=== PATIENT | male | born 1960 | race Caucasian/White ===

== ENCOUNTER 2024-12-16 01:13 | Emergency (ER) | payer OTHER ==
[~2024-12-16] VITALS: Ht 182.9 cm; Wt 109.0 kg
[2024-12-16 01:17] VITALS: O2SAT 98
[2024-12-16 01:43] VITALS: BP 50/27; PULSE 66; O2SAT 95
[2024-12-16 01:45] VITALS: RESP 24
[2024-12-16 01:53] LABS: BASOPHILS % 1.1 % (0.0-2.0); EOSINOPHILS % 0.8 % (0.0-5.0); HEMATOCRIT. 47.7 % (42.0-52.0); HEMOGLOBIN. 15.7 g/dL (14.0-18.0); LYMPHOCYTES % 57.3 % (20.0-50.0); MEAN CORPUSCULAR HEMOGLOBIN 31.2 pg (28.0-32.0); MEAN CORPUSCULAR VOLUME 94.6 fL (80.0-94.0); MEAN PLATELET VOLUME 8.5 fl (7.4-10.4); MONOCYTES % 3.9 % (2.0-8.0); NEUTROPHILS % 36.9 % (40.0-76.0); PLATELET 239 x1000/uL (130-400); RED BLOOD CELL COUNT 5.04 mill/uL (4.7-6.1); RED CELL DISTRIBUTION WIDTH 12.9 % (11.6-14.6); WHITE BLOOD COUNT 7.1 x1000/uL (4.5-11.0)
[2024-12-16 02:00] LABS: PARTIAL THROMBOPLASTIN TIME 22.5 sec (23.4-31.0); PROTHROMBIN TIME 10.6 sec (9.6-11.0)
[2024-12-16 02:01] LABS: CARBON DIOXIDE 21 mEq/L (21-32); CHLORIDE 103 mEq/L (98-107); POTASSIUM 3.2 mEq/L (3.5-5.1); SODIUM 139 mEq/L (136-145)
[2024-12-16 02:02] LABS: CALCIUM 9.2 mg/dL (8.7-10.4)
[2024-12-16 02:07] LABS: CREATININE 1.3 mg/dL (0.6-1.3); ETHANOL BLOOD < 10 mg/dL (<10); GLUCOSE 283 mg/dL (70-105); UREA NITROGEN BLOOD 15 mg/dL (9-23)
[2024-12-16 02:09] LABS: PHOSPHORUS 4.1 mg/dL (2.5-4.9)
[2024-12-16] MEDS ORDERED: KCL 20MEQ/100ML PREMIX 100 ML IV SCH (02:30)
[2024-12-16] MEDS ORDERED: ACETAMINOPHEN 1000MG/100ML 100 ML IV NR (02:30)
[2024-12-16 02:31] LABS: TROPONIN I HIGH SENSITIVITY 408 ng/L (3.0-53)
[2024-12-16 02:32] LABS: LACTIC ACID 7.9 mmol/L (0.4-2.0)
== END 2024-12-16 03:02 ==
LOC: ER 01:13 → EDBEDREQ 01:29 → ER 03:02 → CANBEDREQ 03:04
DX: I44.2 Atrioventricular block, complete (principal); I46.9 Cardiac arrest, cause unspecified; E11.9 Type 2 diabetes mellitus without complications
CPT/HCPCS: 80048; 80320; 82962; 83880; 83605; 83735; 84100; 85025; 85610; 85730; 84484; 36415; 71045; 94660; 93005; 99291; J3480; Z7610; 94070; 94664; 98960; G0480; J0131